=== PATIENT | female | born 1950 | race Caucasian/White ===

== ENCOUNTER 2022-12-05 20:53 | Emergency (ER) | payer MEDICARE, SELFPAY ==
--- NOTE | ~2022-12-05 | XR_ITS ---
XR chest 1V portable DATE: 12/05/2022 21:50 INDICATION: Shortness of breath. Weakness. TECHNIQUE: AP chest COMPARISON: None FINDINGS: There is cardiomegaly. Is aortic calcification and unfolding. No hilar or mediastinal enlargement is evident. There is elevation of the right diaphragm. There is infiltrate or atelectasis in the right lower lung . The lungs otherwise appear clear. No pleural effusion or pulmonary vascular congestion or pneumothorax. IMPRESSION: Elevated right diaphragm Right lower lung infiltrate and/atelectasis Cardiomegaly Aortic atherosclerosis Reviewed, dictated and finalized at location A.
--- NOTE | ~2022-12-05 | CT_ITS ---
EXAMINATION: CT brain wo con DATE: 12/05/2022 21:45 INDICATION: Weakness TECHNIQUE: Computed tomography (CT) of the head was performed without intravenous contrast. The mA wa s adjusted according to patient size. Iterative reconstruction technique was employed. Exam dose: 60 5.33 mGy-cm total exam DLP. COMPARISON: None FINDINGS: Cavum septum pellucidum and cavum vergae, anatomic variants. Chronic bilateral basal ganglia lacunar infarcts. There is nonspecific diminished attenuation of the cerebral white matter, likely due to chronic small vessel ischemic changes. Bilateral carotid siphon internal carotid artery and left vertebral and basilar artery calcifications. No intracranial mass lesion or hemorrhage no midline shift or mass effect. No subdural or epidural he matoma. No fracture or bone destruction of the cranial vault. Included paranasal sinuses and mastoid air cells are normally developed and aerated. IMPRESSION: Chronic bilateral basal ganglia lacunar infarcts Cerebral atherosclerosis and chronic small vessel ischemic changes of the cerebral white matter No acute intracranial finding Reviewed, dictated and finalized at Location A. Reviewed, dictated and finalized at location A. IMPRESSION: Chronic bilateral basal ganglia lacunar infarcts Cerebral atherosclerosis and chronic small vessel ischemic changes of the cereb ral white matter No acute intracranial finding
[2022-12-05 20:58] VITALS: BP 153/82; PULSE 95; RESP 16; TEMP 37.9; O2SAT 98
--- NOTE | 2022-12-05 21:21 | ECG_ITS ---
Measurements Intervals [place] Rate: 83 P: 33 NH: 160 QRS: -49 QRSD: 158 T: 136 QT: 387 QTc: 456 Interpretive Statements SINUS RHYTHM LEFT AXIS DEVIATION LEFT BUNDLE BRANCH BLOCK ABNORMAL ECG NO PREVIOUS ECG AVAILABLE FOR COMPARISON Electronically Signed On 12-06-2022 8:16:03 CDT by Joss Rowell D.O.
--- NOTE | 2022-12-05 21:46 | ED.GENADULT ---
HPI - General Adult General Chief complaint: Unspecified Stated complaint: weakness, sob, Time Seen by Provider: 12/05/22 21:12 History of Present Illness HPI narrative: Patient is a 72-year-old female who presents the emergency department with chief complaint of generalized weakness. Patient reports that this evening she was at a shinto activity around 5 PM and noticed that she started having some chills. Patient associated this initially with getting wet after she was outside in the rain but also reports that she is had a little bit of a cough and has felt short of breath for several days. Patient states that she has been a little bit confused and just not her normal self. Related Data Allergies Allergy/AdvReac Type Severity Reaction Status Date / Time No Known Allergies Allergy Verified 12/05/22 20:54 Review of Systems Review of Systems: A 10 system review of systems was completed on the patient and is negative except for what is stated in the HPI. Nursing and ancillary documentation was reviewed. Exam Narrative: GENERAL: Well-appearing, well-nourished, and in no acute distress. HEAD: Normocephalic, atraumatic. EYES: PERRLA and EOMI. ENT: Nares clear, no rhinorrhea or epistaxis. Mucous membranes moist. NECK: Supple. CHEST: Clear to auscultation. No respiratory distress. HEART: Regular rate and rhythm. No murmur heard. Normal peripheral pulses. ABDOMEN: Soft, nontender, nondistended, normal active bowel sounds. EXTREMITIES: Normal range of motion. No edema. SKIN: Warm, dry, no rash. NEURO: No focal deficits. Alert and oriented x3. PSYCH: Normal mood and affect. Course Vital Signs Vital signs: Vital Signs Temperature 37.9 C H 12/05/22 20:58 Pulse Rate 95 12/05/22 20:58 Respiratory Rate 16 12/05/22 20:58 Blood Pressure 153/82 H 12/05/22 20:58 Pulse Oximetry 98 12/05/22 20:58 Temperature 36.9 C 12/05/22 23:10 Pulse Rate 71 12/05/22 23:10 Respiratory Rate 18 12/05/22 23:10 Blood Pressure 122/66 12/05/22 23:05 Pulse Oximetry 99 12/05/22 23:10 Medical Decision Making MDM Narrative Medical decision making narrative: Differential diagnosis includes CVA, UTI, pneumonia, electrolyte abnormality, COVID Chest x-ray interpreted by the radiologist showed right lower lobe infiltrate CT head showed no acute findings Laboratory studies were obtained which showed a white count of 16.5 electrolytes showed no significant abnormalities the patient was negative for COVID and negative for influenza lactate was slightly elevated at 2.8. Procalcitonin was 0.1 BNP was 353 troponin 0.034 patient is feeling much better at this time is alert oriented and per the family at her baseline. [place] that the changes initially were secondary to her fever and infectious process. Patient was given Rocephin and Zithromax in the emergency department will be transitioned on cefdinir and Zithromax as an outpatient. Vital Signs Vital Signs: Vital Signs Temperature 37.9 C H 12/05/22 20:58 Pulse Rate 95 12/05/22 20:58 Respiratory Rate 16 12/05/22 20:58 Blood Pressure 153/82 H 12/05/22 20:58 Pulse Oximetry 98 12/05/22 20:58 Temperature 36.9 C 12/05/22 23:10 Pulse Rate 71 12/05/22 23:10 Respiratory Rate 18 12/05/22 23:10 Blood Pressure 122/66 12/05/22 23:05 Pulse Oximetry 99 12/05/22 23:10 Lab Data 12/05/22 21:56 12/05/22 21:58 Labs: Lab Results 12/05/22 12/05/22 12/05/22 Range/Units 21:56 21:56 21:56 WBC 16.5 H (4.5-10.0) K/mm3 RBC 4.19 L (4.2-5.4) M/mm3 Hgb 13.4 (12.0-15.0) g/dL Hct 38.3 (37.0-47.0) % MCV 91.4 (80-100) fl MCH 32.0 (26-34) pg MCHC 35.0 (32-36) g/dl RDW 12.6 (11.5-14.5) % Plt Count 219 (150-375) k/mm3 MPV 8.5 (7.4-10.4) fl Immature Gran % (Auto) Not Reportable Neut % (Auto) Not Reportable Lymph % (Auto) Not Reportable [place] % (Auto) Not
[2022-12-05 22:08] LABS: Hematocrit 38.3 % (37.0-47.0); Hemoglobin 13.4 g/dL (12.0-15.0); Mean Corpuscular Volume 91.4 fl (80-100); Mean Platelet Volume 8.5 fl (7.4-10.4); Platelet Count Result 219 k/mm3 (150-375); Red Blood Count 4.19 M/mm3 (4.2-5.4); Red Cell Distribution Width 12.6 % (11.5-14.5); White Blood Count 16.5 K/mm3 (4.5-10.0)
[2022-12-05] MEDS: SODIUM CHLORIDE 0.9% IV 1,000 ML 999 ML IV CONT (22:13)
[2022-12-05 22:19] LABS: Alanine Aminotransferase 26 U/L (6-35); Albumin Level 4.1 g/dL (3.5-5.1); Alkaline Phosphatase 76 U/L (38-126); Anion Gap 10 mmol/L (8-16); Aspartate Amino Transferase 40 U/L (14-36); Bilirubin,Total 0.6 mg/dL (0.2-1.3); Blood Urea Nitrogen 19 mg/dL (7-17); Calcium 8.8 mg/dL (8.4-10.2); Carbon Dioxide 22 mmol/L (22-30); Chloride 106 mmol/L (98-107); Estimated CRCL calculation 48 ml/min; Estimated Glomerular Filt Rate > 60; Glucose 119 mg/dL (65-110); Potassium 3.6 mmol/L (3.4-5.0); Sodium 138 mmol/L (137-145)
[2022-12-05 22:19] LABS: Magnesium 1.9 mg/dL (1.6-2.3)
[2022-12-05 22:20] LABS: Lactic Acid Reflex 2.8 mmol/L (0.7-2.0)
[2022-12-05 22:21] LABS: Prothrombin Time 13.2 Seconds (11.1-14.7)
[2022-12-05 22:22] LABS: Partial Thromboplastin Time 28.3 SECONDS (22.3-36.8)
[2022-12-05 22:24] LABS: Appearance Urine Clear (Clear); Bacteria Urine None Seen /hpf; Bilirubin Urine Negative (Negative); Blood Urine Negative (Negative); Color Urine Yellow (Yellow); Glucose Urine UA Negative (Negative); Ketones Urine Negative (Negative); Leukocyte Esterase Ur Trace LEU/UL (Negative); Nitrate Urine Negative (Negative); Non Pathogenic Casts 0-2; Protein Urine Negative (Negative); Specific Grav Ur 1.015 (1.001-1.035); Squamous Epithelial Cell Urine None seen /hpf (Few); Urobilinogen Urine 0.2 mg/dL (<2.0); WBC Urine 0-5 /hpf; pH Urine 6.5 (5.0-9.0)
[2022-12-05 22:28] LABS: NT Pro B Type Natriuretic Pept 353 pg/mL (19.9-100)
[2022-12-05 22:31] LABS: Troponin I 0.034 ng/mL (0.000-0.034)
[2022-12-05 22:45] LABS: Add Urine Microscopic? YES
[2022-12-05 22:48] LABS: Procalcitonin 0.1 ng/mL
[2022-12-05 22:53] LABS: Influenza A QL RT-PCR Negative (Negative); Influenza B QL RT-PCR Negative (Negative); SARS-CoV-2 RNA PCR Negative
[2022-12-05 22:57] LABS: Band Neutrophils Percent 12 % (0-6); Lymphocytes Absolute Manual 1.15 K/mm3 (1.1-4.5); Metamyelocytes Percent 3 %; Monocytes Absolute Manual 1.15 K/mm3 (0.1-0.90); Monocytes Percent Manual 7 % (3-9); Myelocytes Percent 1 %; Neutrophils Absolute Manual 13.53 K/mm3 (1.7-7.2); Neutrophils Percent Manual 70 % (46-73); Platelet Estimate Adequate (Adequate); Total Cells Counted 100
[2022-12-05 22:58] LABS: Crenated RBC 1+ (NORMAL); Macrocytosis 1+ (NORMAL); Schistocytes None Seen (NORMAL)
[2022-12-05 23:03] VITALS: BP 126/60; PULSE 77
[2022-12-05 23:04] VITALS: BP 129/64; PULSE 83
[2022-12-05 23:05] VITALS: BP 122/66; PULSE 85
[2022-12-05 23:10] VITALS: PULSE 71; RESP 18; TEMP 36.9; O2SAT 99
[2022-12-06 01:05] LABS: Reflex Lactic Acid Yes or No Add Lactic
[2022-12-06 01:09] VITALS: BP 105/69; PULSE 69; RESP 18; TEMP 36.6; O2SAT 99
== END 2022-12-06 01:09 | disposition home or self-care (01) ==
PROVIDERS: Emergency Provider Emergency Medicine; PCP Internal Medicine
DX: J18.9 Pneumonia, unspecified organism (principal); Z20.822 Contact with and (suspected) exposure to COVID-19; R06.02 Shortness of breath
CPT/HCPCS: 36415; 70450; 71045; 80053; 81001; 83605; 83735; 83880; 84145; 84484; 85025; 85610; 85730; 87040; 87636; 93005; 96365; 96366; 96367; 99284; J0131; J0456; J0696; J7030

== ENCOUNTER 2024-10-20 10:01 | Outpatient (CLI) | payer MEDICARE, SELFPAY ==
--- NOTE | ~2024-10-20 | CT_ITS ---
CT Scan of the Chest without Contrast: Clinical Indication: Lung cancer screening, nicotine dependence Technique: Contiguous sections were acquired throughout the chest without intravenous contrast. Dose reduction technique was used on this scan by utilizing automated exposure control and iterative recon struction technique. The dose-length product (DLP) was 54.09 mGy-cm. Findings: There is no evidence of any significant mediastinal, hilar or axillary lymphadenopathy. The mediastin al soft tissues appear normal. There is no evidence of pleural or pericardial effusion. There are streaky chronic interstitial changes predominantly at the lung bases and in the lingula and right middle lobe. No discrete pulmonary nodule clearly identified. Images through the upper abdomen reveal no abnormalities. There is advanced degenerative spondylosis of the mid thoracic spine. Impression: Lung RADS 1: Negative. 12 month follow-up screening CT advised. Chronic interstitial changes, as above. Reviewed, dictated and finalized at [facility]. HEMIST Impression: Lung RADS 1: Negative. 12 month follow-up screening CT advised. Chronic interstitial changes, as above.
--- OUTSIDE RECORDS SUMMARY | 2024-10-20 10:28 | XMS_ITS | Encounter Summary ---
Author Organization [facility] Address [address] [place] [address] Phone Care Team Providers Care Allergist/Md Name Role Phone Alesha Gregg MD Primary Care Provider [phone] Jamie Montgomery MD Unavailable Niharika Mena MD Unavailable [phone] Anu Gibbs MD Unavailable Pieter Clinton MD Unavailable [phone] Ariana Carcamo MD Unavailable Fay Burciaga PhD Unavailable Harjeet Crawford MD Unavailable Cate Mejia BUSINESS DEVELOPMENT RECRUITER Unavailable Ryan Kellogg BUSINESS DEVELOPMENT RECRUITER Unavailable Ja Dyer DNP Unavailable Gerald Harmon MD Primary Care Provider Haritha Yousif NP Unavailable Encounter Details Date Type Department Care Team (Late st Contact Info) Description 06/08/2019 Social Work [facility] Oncology [address] [address] Drea Melissa, INTEGRATED CIRCUITS INSPECTOR [address] [facility] [place] [address] Social History Tobacco Use Types Packs/Day Years Used Date Smoking Tobacco: Former Cigarettes 0.5 30 0 10/28/1988 - 10/28/2018 Smokeless Tobacco: Never Alcohol Use Standard Drinks/Week Comments Yes 0 (1 standard drink = 0.6 oz pur e alcohol) occasional Comments No Sex and Gender Information Value Date Recorded Sex Assigned at Not on file Legal Sex Female 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 Sex: female (home) Address: [address] [place] [address] PCP: Alesha BOWDEN was consulted to provide patient with a list of wig resources. SW provided resources, no additional information at this time. I will remain available to assist as needed. SUSANA Delaney documented in this encounter Plan of Treatment Not on file documented as of this encounter Visit Diagnoses Not on filedocumented in this encounter Care Teams Allergist/Md Relationship Specialty [place] [address] [facility] [address] [place] [address] PCP - General Gastroenterology 08/11/18 10/02/21 Gerald Harmon MD [address] [facility] [address] [place] [address] PCP - General Internal Medicine 10/03/21 [place] [address] [address] Consulting Physician Pulmonary Disease 12/08/18 3 [place] [address] [address] Consulting Physician Cardiology 12/08/18 04/30/23 [place] [address] [address] Medical Oncologist/Kitchen Aide Medical Oncology 12/08/18 09/03/20 [place] [address] [address] Consulting Physician Pulmonary Disease 12/23/18 3 [place] [address] [address] Radiation Oncologist Radiation Oncology 05/05/19 Fay Burci[place] PhD [address] [address] Nurse Practitioner Radiation Oncology 05/05/19 04/30/23 [place] [address] [address] Surgeon Surgical Oncology 05/05/19 04/30/23 Cate Mejia, BUSINESS DEVELOPMENT RECRUITER [address] [facility] [address] [place] [address] [facility] Outpatient Line Tender Flakeboard 08/15/19 08/25/19 Ryan Kellogg, BUSINESS DEVELOPMENT RECRUITER [address] [place] [address] [facility] Outpatient Line Tender Flakeboard 08/15/19 08/25/19 Ja Dyer DNP [address] [facility] [facility] [address] [place] [address] Nurse Practitioner Internal Medicine 08/15/19 08/25/19 Haritha Yousif, ERASTO [address] [place] [address] Nurse Practitioner Medical Oncology 05/01/23 documented as of this encounter
--- OUTSIDE RECORDS SUMMARY | 2024-10-20 10:28 | XMS_ITS | Encounter Summary ---
Author Organization [facility] Address [address] [place] [address] Phone Care Team Providers Care Fishing Rod Assembler Name Role Phone Alesha Gregg MD Primary Care Provider [phone] Jamie Montgomery MD Unavailable Niharika Mena MD Unavailable Anu Gibbs MD Unavailable Ryan Kellogg BAR PORTER Unavailable Cate Mejia BAR PORTER Unavailable Ja Dyer DNP Unavailable Pieter Clinton MD Unavailable Cate Mejia BAR PORTER Unavailable Ryan Kellogg BAR PORTER Unavailable Ariana Carcamo MD Unavailable Fay Burciaga PhD Unavailable Harjeet Crawford MD Unavailable Cate Mejia BAR PORTER Unavailable [phone] Ryan Kellogg BAR PORTER Unavailable Ja Dyer DNP Unavailable Gerald Harmon MD Primary Care Provider Yousif Haritha Thomas CEO NA Unavailable [phone] Encounter Details Date Type Department Care Team (Latest Contact Info) Description 08/30/2018 Orders Only [facility] Scanning, Provider Social History Tobacco Use Types Packs/Day Years Used Date Smoking Tobacco: Every Day Smokeless Tobacco: Never Alcohol Use Standard Drinks/Week Comments No 0 (1 standard drink = 0.6 oz pur e alcohol) Comments No Sex and Gender Information Value Date Recorded Sex Assigned at Not on file Legal Sex Female 8:12 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 Gender Identity Not on file Sexual Orientation Not on file documented as of this encounter Plan of Treatment Not on file documented as of this encounter Procedures Procedure Name Priority Date/Time Associated Diagnosis Comments SCAN - PATHOLOGY 08/30/2018 documented in this encounter Results * SCAN - PATHOLOGY (08/30/2018) us Provider Scanning Final Result documented in this encounter Visit Diagnoses Not on filedocumented in this encounter Care Teams Fishing Rod Assembler Relationship Specialty Start [place] [address] [address] PCP - General Gastroenterology 08/11/18 10/02/21 Gerald Harmon MD [address] [place] [address] PCP - General Internal Medicine 10/03/21 [place] [address] [facility] [address] [place] [address] Consulting Physician Pulmonary Disease 12/08/18 3 [place] [address] [address] [facility] [address] [place] [address] Consulting Physician Cardiology 12/08/18 04/30/[address] [place] [address] [facility] [address] [place] [address] Medical Oncologist/Dryland Farmer Medical Oncology 12/08/18 09/03/20 Ryan Kellogg, BAR PORTER [address] [facility] [address] [place] [address] [facility] Outpatient Mainframe Programmer Analyst 12/23/18 12/23/18 Cate Mejia, [facility] [address] [facility] [address] [place] [address] [facility] Outpatient Mainframe Programmer Analyst 12/23/18 12/23/18 [address] D[address]NP [address] [facility] [address] [place] [address] Nurse Practitioner Internal Medicine 12/23/18 02/20/[address] [place] [address] [facility] [address] [place] [address] Consulting Physician Pulmonary Disease 12/23/18 3 Cate Mejia, BAR PORTER [address] [facility] [address] [place] [address] [facility] Outpatient Mainframe Programmer Analyst 12/24/18 02/20/19 Ryan Kellogg, BAR PORTER [address] [facility] [address] [place] [address] [facility] Outpatient Mainframe Programmer Analyst 12/24/18 02/20/19 [place] [address] [facility] [address] [place] [address] Radiation Oncologist Radiation Oncology 05/05/19 Fay Burci[place], [place] [address] [facility] [address] [place] [address] Nurse Practitioner Radiation Oncology 05/05/19 04/30/23 [place] [address] [facility] [address] [place] [address] Surgeon Surgical Oncology 05/05/19 04/30/23 Cate Mejia, BAR PORTER [address] [facility] [address] [place] [address] [facility] Outpatient Mainframe Programmer Analyst 08/15/19 08/25/19 Ryan Kellogg, BAR PORTER [address] [facility] [address] [place] [address] [facility] Outpatient Mainframe Programmer Analyst 08/15/19 08/25/19 Ja Dyer DNP [address] [facility] [address] [place] [address] Nurse Practitioner Internal Medicine 08/15/19 08/25/19 Haritha Yousif NP [address] [place] [address] Nurse Practitioner Medical Oncology 05/01/23 documented as of this encounter
--- OUTSIDE RECORDS SUMMARY | 2024-10-20 10:28 | XMS_ITS | Continuity of Care Document ---
Author Organization [facility] Address [address] [place] [address] Phone Care Team Providers Care Clerk Funeral Detail Name Role Phone Vee OD, Clint Unavailable Unavailable Advance Directives Directive Yes / No Effective Date File Name No Information Encounters Encounter Description Practice Location Reason(s) For Visit Diagnoses Date Provider Providers Copied on Encounter [facility], [address], [place], [place], [id number], [place] tel:[phone] [facility] No Information Dec-0 7-200 2 Vee OD Clint. [address] , [address], [place], [address], [place]. tel:[phone] Family History Family Member Type Diagnosis Age At Onset No Information Payers Payer name Insurance type Covered green party ID Authoriza timartha(s) [employer] SOI CI [id number] Social History Type Description Quantity Date Captured Comments Sex Female Smoking Status No Information Chief Complaint And Reason For Visit No Information Reason For Referral Reason For Referral No Information History Of Present Illness Encounter Date Complaint History Of Prese nt Illness No Information Functional Status Date Functional Assessmen t No Information Instructions Date Instruction Additional Infor mation No Information Assessments Type Assessment Date No Information Patient Care Teams Name Effective Dates (start - stop) Status Members No Information
--- OUTSIDE RECORDS SUMMARY | 2024-10-20 10:28 | XMS_ITS ---
Author Organization [facility] Address [address] [place] [address] Care Team Providers Care Teaching Pastor Name Role Phone Gerald Harmon MD Primary Care Provider Haritha Yousif MANAGER PROGRAMS Unavailable Active Problems Problem Noted Date Diagnosed Date Major depressive disorder, r ecurrent episode, in full remission (CMS/HCC) 10/08/2021 ELIZABETH (generalized anxiety disorder) 10/10/2020 Encounter for follow-up surveillance of breast c ancer 03/14/2020 Pneumonitis, interstitial (CMS/HCC) 08/10/2019 Essential hypertension 08/10/2019 Generalized edema 08/10/2019 Other chronic pain 08/10/2019 Encounter for person encountering health service s 04/27/2019 Malignant neoplasm of female breast 04/12/2019 Overview (04/12/2019): Added automatically from request for surgery [id number] Pneumonia due to infectious organism 12/15/2018 Overview (12/15/2018): Added automatically from request for surgery [id number] Exam for clinical research 09/28/2018 Malignant 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, estrogen receptor positive 09/08/2018 Cancer Staging:Clinical:Stage IIB(cT2, cN1(f), cM0, G3, ER: Positive, MN: Positive, HER2: Negative) - Signed by Anu Gibbs MD on 09/08/2018 Pathologic stage from 04/12/2019:No Stage Recommended(ypT2, pN1, cM0, G2, ER+, MN+, HER2-) - Signed by Fay Burciaga, PhD on 05/05/2019 Pneumonitis Current Oncology Plans No current plan information found. Past Plans Oncology Chemotherapy Treatment Plan Name Start Date Discontinue Date Treatment Medications Discontinue Reason Plan Provider Cycles - [facility] - PD [id number] - Palbociclib - Neoadjuvant with optional Zoladex 11/12/2018 04/27/2019 [facility] palbociclib ([id number]; Ibrance) (2012-09-106/A 548-IIRS) Toxicity/Compl ication Anu Gibbs MD Treatment not started - [facility] Breast - [id number] - Arm 1 - Anastrozole - NeoAdjuvant 9 11/05/2018 No medications scheduled. Patient Preference Anu Gibbs MD Treatment not started Oncology Supportive Care Plan Name Start Date Discontinue Date Treatment Medications Discontinue Reason Plan Provider ALTEPLASE (CATHFLOW ACTIVASE) - ORDERS FOR OCCLUDED CATHETERS 04/27/2019 11/24/2023 No medications scheduled. Automatic discontinuation of dormant plans Anu Gibbs MD Oncology Treatment (2) Plan Name Start Date Discontinue Date Treatment Medications Discontinue Reason Plan Provider Cycles TC: (DOCEtaxe l / Cyclophos phamide) 21 Day Cycles - Breast 9 11/15/2020 cycloPHOSphamide (CYTOXAN)cycloPHOSp hamide (CYTOXAN) IVPB (vial 20 mg/mL) ([id number])DOCEtaxel (TAXOTERE)DOCEtaxel (TAXOTERE) IVPB in 250 mL (vial 10mg/mL) Therapy Complete Anu Gibbs MD 6 of 6 cycles started Specialty Infusion Treatment Plan Name Start Date Discontinue Date Treatment Medications Discontinue Reason Plan Provider IV MAINTENANCE THERAPY PLAN 04/27/2019 07/22/2023 No medications scheduled. Automatic discontinuation of dormant plans Anu Gibbs MD Radiation Treatments * Plan Last Treated On Elapsed Days Fractions Treated Prescribed Fraction Dose Prescribed Total Dose RT BRS BOOST 11/17/2019 45 5 200 cGy 1,000 c Gy RT CW_LNs 11/10/2019 38 28 180 cGy 5,040 cGy Reference Point Last Treated On Elapsed Days Session Dose Total Dose PTV_BOOST 11/17/2019 45 200 cGy 1,000 cGy R BREAST_LNs 11/10/2019 38 180 cGy 5,040 cGy Lifetime Dose Tracking * Chemical Lifetime Dose Automatic Entry Manual Entr y Fluoro Time 0.58 minutes 0.58 minutes 0 minutes cyclophosphamide 2,987.028 mg/m2 (5,490 mg) 2,987.028 mg/m2 (5,490 mg) 0 mg/m2 (0 mg) Air kerma at the reference point (Ka,r) 13.47 mGy 13.47 mGy 0 mGy
--- OUTSIDE RECORDS SUMMARY | 2024-10-20 10:28 | XMS_ITS | Encounter Summary ---
Author Organization [facility] Address [address] [place] [address] Phone Care Team Providers Care Agricultural Extension Officer Name Role Phone Alesha Gregg MD Primary Care Provider [phone] Jamie Montgomery MD Unavailable Niharika Mena MD Unavailable [phone] Anu Gibbs MD Unavailable Pieter Clinton MD Unavailable Ariana Carcamo MD Unavailable Fay Burciaga PhD Unavailable Harjeet Crawford MD Unavailable Cate Mejia ASSISTANT DEPARTMENT MANAGER Unavailable Ryan Kellogg ASSISTANT DEPARTMENT MANAGER Unavailable [phone] Ja Dyer DNP Unavailable Gerald Harmon MD Primary Care Provider Haritha Yousif MANAGER RESEARCH Unavailable Encounter Details Date Type Department Care Team (Latest Contact Info) Description 04/21/2019 Orders Only [facility] Scanning, Provider [...] on file Legal Sex Female 8:12 AM SHADOWGRAPH OPERATOR Gender Identity Not on file Sexual Orientation Not on file documented as of this encounter Plan of Treatment Not on file documented as of this encounter Procedures Procedure Name Priority Date/Time Associated Diagnosis Comments SCAN - LABS 04/21/2019 documented in this encounter Results * SCAN - LABS (04/21/2019) us Provider Scanning Final Result documented in this encounter Visit Diagnoses Not on filedocumented in this encounter Care Teams Agricultural Extension Officer Relationship Specialty Start [place] [address] [address] PCP - General Gastroenterology 08/11/18 10/02/21 Gerald Harmon MD [address] [facility] [address] [place] [address] PCP - General Internal Medicine 10/03/21 [place] [address] [address] Consulting Physician Pulmonary Disease 12/08/18 3 [place] [address] [address] Consulting Physician Cardiology 12/08/18 04/30/23 [place] [address] [address] Medical Oncologist/Newspaper Delivery Driver Medical Oncology 12/08/18 09/03/20 [place] [address] [address] Consulting Physician Pulmonary Disease 12/23/18 3 [place] [address] [address] Radiation Oncologist Radiation Oncology 05/05/19 [place] [address] [address] Nurse Practitioner Radiation Oncology 05/05/19 04/30/23 [place] [address] [address] Surgeon Surgical Oncology 05/05/19 04/30/23 Cate Mejia, ASSISTANT DEPARTMENT MANAGER [address] [facility] [address] [place] [address] [facility] Outpatient Chemistry Technician 08/15/19 08/25/19 Ryan Kellogg, ASSISTANT DEPARTMENT MANAGER [address] [facility] [address] [place] [address] [facility] Outpatient Chemistry Technician 08/15/19 08/25/19 [address] D[address] DNP [address] [facility] [address] [place] [address] Nurse Practitioner Internal Medicine 08/15/19 08/25/19 Haritha Yousif NP [address] [place] [address] Nurse Practitioner Medical Oncology 05/01/23 documented as of this encounter
--- OUTSIDE RECORDS SUMMARY | 2024-10-20 10:28 | XMS_ITS | Referral Summary ---
Author Organization [facility] Address [address] [place] [address] Care Team Providers Care Insurance Writer Name Role Phone Gerald Harmon MD Primary Care Provider Haritha Yousif FRET SAW OPERATOR Unavailable [phone] Encounters Date Type Department Care Team Description 09/02/2024 Telephone [facility] Oncology [facility] [place] [address] Haritha Yousif NP from Last 3 Months Allergies No known active allergies Medications biotin 10,000 mcg capsuleIndication s:hair skin and nails Take 1 capsule (10,000 mcg total) by mouth daily Active naproxen (NAPROSYN) 250 mg tabletIndications :Anti-inflammator y,Pain Take 2 tablets (500 mg total) by mouth every 12 (twelve) hours as needed for pain Active lisinopril (PRINIVIL,ZESTRIL ) 20 mg tablet Take 1 tablet (20 mg total) by mouth daily Active vitamin B complex (B COMPLEX-VITAMIN B12 ORAL) Take 1 tablet by mouth daily Active oxybutynin XL (DITROPAN-XL) 10 mg 24 hr tablet 3 Active mv,Ca,min-iron fnbh-FA-eljlwb 1 mg iron-66.7 mcg-1,000 mcg tablet Take by mouth Active magnesium chloride 64 mg of elemental magnesium delayed release tabletIndications :hypomagnesemia Take 1 tablet (64 mg of elemental magnesium total) by mouth Active calcium carbonate-vitamin D3 1,500 mg (600 mg elemental)-500 unit capsule Take by mouth Act janine venlafaxine XR (EFFEXOR-XR) 75 mg 24 hr capsule TAKE 1 CAPSULE(75 MG) BY MOUTH DAILY 30 capsule 2 4 Active venlafaxine XR (Effexor XR) 37.5 mg 24 hr capsule Take 1 capsule (37.5 mg total) by mouth daily In addition to 75 mg for a total of 112.5 mg 30 capsule 2 4 02/09/20 25 Active tamoxifen (NOLVADEX) 20 mg tabletIndications :Encounter for person encountering health services,Malignan t neoplasm of upper-outer quadrant of right breast in female, estrogen receptor positive (HCC) Take 1 tablet (20 mg total) by mouth daily 90 tablet 3 4 Active Active Problems Problem Noted Date Diagnosed Date [...] (04/12/2019): Added automatically from request for surgery [id number] Pneumonia due to infectious organism 12/15/2018 Overview (12/15/2018): Added automatically from request for surgery [id number] Exam for clinical research 09/28/2018 Malignant 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, estrogen receptor positive 09/08/2018 Cancer Staging:Clinical:Stage IIB(cT2, cN1(f), cM0, G3, ER: Positive, MO: Positive, HER2: Negative) - Signed by Anu Gibbs MD on 09/08/2018 Pathologic stage from 04/12/2019:No Stage Recommended(ypT2, pN1, cM0, G2, ER+, MO+, HER2-) - Signed by Fay Burciaga, PhD on 05/05/2019 Pneumonitis Immunizations Name Administration Dates Next Due Influenza, Quadrivalent, Hig h Dose, Preservative Free, Intrr 06/18/2020 Influenza, Trivalent, High D ose, Split, Preservative Free, Intramuscular 07/11/2019 Influenza, Unspecified 07/11/2019 Moderna SARS-CoV-2 Monovalent Vaccination (12+ Y RS) 12/13/2020,11/14/2020 Social History Tobacco Use Types Packs/Day Years Used Date Smoking Tobacco: Every Day Cigarettes 0.5 30 Started: 10/28/1988; Last attempted to quit: 10/28/2018 Smokeless Tobacco: Never Tobacco Cessation:Ready to Q uit: Not Asked; Counseling Given: Not Answered Alcohol Use Standard Drinks/Week Comments Yes 0 (1 standard drink = 0.6 oz pur e alcohol) occasional Social Connection and Isolat ion Panel [NHANES] Answer Date Recorded Frequency of Communication w ith Friends and Family Three times a week 08/12/2019 Frequency of Social Gatherin gs with Friends and Family More than three times a week 08/12/2019 Attends [employer] Services 1 to 4 times per year 08/12/2019 Active Member of Clubs or Organizations No 08/12/2019 Attends Club or Organization Meetings Never 08/12/2019 Marital Status 08/12/2019 AUDIT-C Answer Date Recorded Frequency of Alcohol Consumption Not on file 12/15/2022 Q2: How many drinks containi ng alcohol do you have on a typical day when you are drinking? Patient does not drink Frequency of Binge Drinking Not on file 11/2022 Overall Financial Resource Strain (CARDIA) Answe r Date Recorded Difficulty of Paying Living Expenses Not hard at all 08/12/2019 Hunger Vital Sign Answer Date Recorded Worried About Running Out of Food in the Last Ye ar Never true 08/12/2019 Ran Out of Food in the Last Year Never true 08/12/2019 PRAPARE - Transportation Answer Date Re corded Lack of Transportation (Medical) No 08/12/2019 Lack of Transportation (Non-Medical) No 08/12/2019 Comments No Sex and Gender Information Value Date Recorded Sex Assigned at Not on file 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 Gender Identity Not on file Sexual Orientation Not on file Last Filed Vital Signs Vital Sign Reading Time Taken Comments Blood Pressure 127/85 04/29/2024 10:15 AM CDT Pulse 73 04/29/2024 10:15 AM CDT Temperature 36.5 C (97.7 F) 04/29/2024 10:15 AM CDT Respiratory Rate 20 04/29/2024 10:15 AM CDT Oxygen Saturation 97% 04/29/2024 10:15 AM CDT Inhaled Oxygen Concentration - - Weight 62.8 kg (138 lb 6.4 oz) 04/29/2024 10:15 AM CDT Height 162.6 cm (5' 4 ) 05/01/2023 10:22 AM CDT Body Mass Index 23.76 05/01/2023 10:22 AM CDT Plan of Treatment Not on file Medical Devices Explanted Type Area Office Services Representative Device Identifier Shelf Expiration Date Model / Serial / Lot [employer] [id number] Powerport Mri Airguard 8fr 1 Lumen Attachable Catheter Latex Free - [id number] Implanted:Qty: 1 on 04/20/2019 by Christ Conrad MD at [facility] Explanted:Qty: 1 on 12/06/2020 by Kaushal Garzon MD at [facility] N/A: Chest [employer] 11/11/2020 [id number] / / [id number] Procedures Procedure Name Priority Date/Time Associated Diagnosis Comments SCREENING MAMMOGRAM BILATERAL W KOBE Schedule Routine, Read Routine (OP Routine) 04/29/2024 9:39 AM CDT Screening mammogram for breast cancer from Last 3 Months or Most Recently Relevant to Health Maintenance Results * Screening Mammogram Bilateral W Kobe (04/29/2024 9:39 AM CDT) Anatomical Region Laterality Modality Breast Bilateral Mammography 04/29/2024 12:4 3 PM CDT Impressions 04/29/2024 12:43 PM CDT No evidence of malignancy in either breast. FINAL ASSESSMENT: BI-RADS Category 2: Benign. RECOMMENDATION: Recommend return for annual screening mammogram in 12 months. Electronically signed by: PEPE FERRIS MD Narrative 04/29/2024 12:43 PM CDT EXAMINATION: BILATERAL SCREENING MAMMOGRAM COMPARISON: All prior mammograms dating back to 2018. TECHNIQUE: Full-field 2D and digital breast tomosynthesis (DBT) images were obtained. CAD was utilized. BREAST PARENCHYMAL COMPOSITION: There are scattered areas of fibroglandular density. FINDINGS: There is no suspicious mass, calcification, or distortion in either breast. Stable changes relating to right breast conservation therapy are again noted. Haritha Yousif FRET SAW OPERATOR IMG MAMMO PROCEDURES Final Result from Last 3 Months or Most Recently Relevant to Health Maintenance Insurance MEDICARE SOLUTIONS [facility] MEDICARE [id number] MEDICARE [facility] REF MEDICARE SOLUTIONS MEDICARE SOLUTIONS Member Subscriber Plan / Payer (Ef fective 2022-Present) Name:Cathi Whittaker Aspen Relation to Subscriber:Self Name:Adolph Whittakerrigo Louise Payer ID:[id number] (NAIC) Type:[employer] MEDICARE Address: [place] [id number] MEDICARE SOLUTIONS Member Subscriber Plan / Payer (Ef fective 2022-Present) Name:Adolph Whittakerrigo Louise Relation to Subscriber:Self Name:Cathi Whittaker Aspen Payer ID:[id number] (NAIC) Type:[facility] MEDICARE Address: [place] [id number] Advance Directives For more information, please contact: [phone] * Full Code (Latest Code Status on File) Date Activated Date Inactivated Comments 08/10/2019 2:58 PM 08/12/2019 5:31 PM * Full Code Date Activated Date Inactivated Comments 03/25/2019 2:32 PM 03/26/2019 8:36 PM * Full Code Date Activated Date Inactivated Comments 12/15/2018 2:08 PM 12/23/2018 9:09 PM * Full Code Date Activated Date Inactivated Comments 12/04/2018 6:48 PM 12/08/2018 8:38 PM Healthcare Agents on File Name Relationship Healthcare Agent [facility] p Communication Emmy Franco Daughter Health Care Agent Juanita Wilson Daughter Health Care Agent Care Teams Insurance Writer Relationship Specialty Start Date End Date Gerald Harmon MD PCP - General Internal Medicine 10/03/21 Haritha Yousif NP [address] [place] [address] Nurse Practitioner Medical Oncology 05/01/23
--- OUTSIDE RECORDS SUMMARY | 2024-10-20 10:28 | XMS_ITS | CONTINUITY OF CARE DOCUMENT ---
Author Name huan pressley Address Unknown Organization [facility] Address [address] [place] [address] Phone [phone] Care Team Providers Care Software Support Specialist Name Role Phone Moe GRAY, Roseanne Unavailable Gerald Harmon MD Unavailable Gerald Harmon MD Unavailable PROBLEMS Condition Status Date Provider Notes Depression active Roseanne Rosa MD HTN essential active Roseanne Rosa MD Breast cancer active Roseanne Rosa MD Cardiomyopathy, echo ef 60%, mild MR, TR, 11/2021 active Ap Ahmedzai Pneumonia completed - Roseanne Rosa MD Family History of CVA or Stroke: active ? Roseanne Rosa MD Tobacco use, quit active Roseanne Rosa MD Smoker completed - Roseanne Rosa MD ENCOUNTERS Date Type Provider Location Encounter Diagnosis - In-person encounter Office Visit Roseanne Rosa MD [place] [facility] Cardiomyopathy, echo ef 60%, mild MR, TR, mokerTobac co use, quit - In-person encounter Office Visit Roseanne Rosa MD [place] [facility] - In-person encounter Office Visit Roseanne Rosa MD [facility] Cardiomyopathy, echo ef 60%, mild MR, TR, neumonia - In-person encounter Office Visit Roseanne Rosa MD [facility] - In-person encounter Office Visit Roseanne Rosa MD [facility] Family History of CVA or Stroke: VITAL SIGNS Date Observation Value Provider Body Mass Index (Ratio) 25.40 kg/m2 Graeme Rosa MD blood pressure, diastolic 87 mm[facility]Hg[facility]Hg[facility] blood pressure, diastolic 87 mm[Hg] Li [facility] blood pressure, systolic 141 mm[Hg] [facility] blood pressure, diastolic 87 mm[Hg] Sa ra Live blood pressure, systolic 141 mm[Hg] Maday a Live oxygen saturation, oximetry 98 % Kristi Live respiratory rate E&M 16 /min Kristi Si ms pulse rate 77 /min Kristi Live blood pressure, cuff size regular Sa ra Live weight E&M 148 [lb_av] Kristi Live height E&M 64 [in_i] Kristi Live Body Mass Index (Ratio) 26.77 kg/m2 Graeme Rosa MD blood pressure, cuff size regular Ke rri Gruenenfelder blood pressure, diastolic 86 mm[Hg] Ke rri Gruenenfelder blood pressure, systolic 132 mm[Hg] Ronald ri Juan Pablo oxygen saturation, oximetry 97 % Nicol Juan Pablo respiratory rate E&M 18 /min Nicol Misbah elliott pulse rate 77 /min Nicol Wilfrid er weight E&M 156 [lb_av] Nicol Grtenanenfe lder height E&M 64 [in_i] Nicol Grtenanenfwill lder Body Mass Index (Ratio) 28.83 kg/m2 Graeme Rosa MD blood pressure, cuff size regular Jovany Christiansonby blood pressure, diastolic 70 mm[Hg] Jovany isty Jesus blood pressure, systolic 110 mm[Hg] Kri stenrique Jesus pulse rate 63 /min Alice Jesus oxygen saturation, oximetry 96 % Alice Jesus respiratory rate E&M 17 /min Alice Jesus weight E&M 168 [lb_av] Alice [place] height E&M 64 [in_i] Alice Jesus Body Mass Index (Ratio) 28.15 kg/m2 Graeme Rosa MD blood pressure, diastolic 70 mm[Hg] Jovany Christiansonby blood pressure, systolic 108 mm[Hg] Jovanyi kat [place] blood pressure, cuff size regular Jovany fontanez Jesus oxygen saturation, oximetry 95 % Alice [place] pulse rate 87 /min Alice Jesus respiratory rate E&M 17 /min Alice Jesus weight E&M 164 [lb_av] Alice [place] height E&M 64 [in_i] Alice Jesus Body Mass Index (Ratio) 26.09 kg/m2 Graeme Rosa MD respiratory rate E&M 19 /min Alice Jesus blood pressure, diastolic 90 mm[Hg] Jovany fontanez [place] blood pressure, systolic 110 mm[Hg] Jovanyi stenrique [place] height E&M 64 [in_i] Alice [place] weight E&M 152 [lb_av] Alice [place] blood pressure, resting Yes [facility] [place] ALLERGIES No Known Drug Allergies HISTORY OF MEDICATION USE Medication Status Instructions Dates Provider Indications Com ments buspirone 5 mg tablet active Kristi Live venlafaxine 75 mg tablet active once a day Nicol Almeida tamoxifen 10 mg tablet active Take 1 once a day Nicol Almeida lisinopril 20 mg tablet active Take 1 tablet by mouth once a day Alice Lee #90, 90 days supply, Filled 02/12/2019 furosemide 40 mg tablet active Take 1 tablet by mouth once a day Alice Lee #90, 90 days supply, Filled 02/12/2019 OXYCODONE HCL 5 MG ORAL TABLET completed take one tablet by mouth every 4-6 hours as needed for pain - Nicol Almeida #25, 4 days supply, Filled 03/26/2019 METOPROLOL SUCCINATE ER 25 MG ORAL TABLET EXTENDED RELEASE 24 HOUR completed take one tablet by mouth twice daily - Alice Lee LISINOPRIL-HYD ROCHLOROTHIAZI DE 10-12.5 MG ORAL TABLET completed take one tablet by mouth once daily - Alice Lee EQL IBUPROFEN PM TABLET completed take one 600 mg tablet by mouth every 8 hours as needed for pain - Nicol Almeida FAMOTIDINE 20 MG ORAL TABLET completed take one tablet by mouth once daily - Nicol Almeida biotin 10 mg tablet active Take 1 tablet by mouth once a day Alice Lee B-6 TABLET active Take 1 tablet by mouth once a day Alice Lee ANASTROZOLE 1 MG ORAL TABLET completed take one tablet by mouth once daily - Nicol Almeida SOCIAL HISTORY Date Observation Value Provider social history reviewed E&M revi ewed - no changes required Ap Barnhart social history E&M S moking History: P atient currently smokes every day. P atient has been counseled to quit. Alvin Lobato smoking/tobacco cess ation, patient education and counseling yes Alvin Lobato social history reviewed E&M revi ewed - no changes required Alvin Lobato number of years as a smoker 33 a Nicol Almeida smoking history, tot al pack/day 1 - 3 a day Nicol Sandovaler cigarette use yes Nicol Pollard elder smoking status Current every day smoker K germán Taylorvickytomas social history E&M S moking History: U nknown if patient has ever smoked. Roseanne Rosa MD social history reviewed E&M revi ewed - no changes required Roseanne Rosa MD smoking status Unknown if ever smoked Stef maderaenrique Lee social history E&M S moking History: U nknown if patient has ever smoked. Roseanne Rosa MD smoking status Unknown if ever smoked Antonino Rosa MD social history reviewed E&M revi ewed - no changes required Roseanne Rosa MD smoking history, tot al pack/day 4-6 cig Alice Christiansonby number of years as a smoker 30 a Alice Jesus smoking, year quit 2019 Aliceestee Chatman sby cigarette use yes Alice Jesus smoking status Former smoker Alice Christiansonby number of grandchildren Roseanne Rosa MD T castillo Rosa MD social history reviewed E&M revi ewed - no changes required Roseanne Rosa MD FAMILY HISTORY Family Member Condition Mother Family History of Co ngestive Heart Failure: Mother Family History of CV A or Stroke: INSURANCE PROVIDERS Payer name Policy type / Coverage type [place] red republican ID [facility] MEDICARE COMPLETE HMO Other [id number] ADVANCE DIRECTIVES Name Date DISCUSSED - NO DECISION MADE TREATMENT PLAN Date Name Performer [id number],SRoseanne MD [id number],SRoseanne MD Cardiology Roseanne Rosa MD Cardiology Roseanne Rosa MD Cardiology Follow up Alvin Nacht Cardiology Follow up Alvin Nacht Cardiology Follow up Alvin Nacht Cardiology Follow up Alvin Nacht Cardiology Roseanne Rosa MD Cardiology Roseanne Rosa MD Cardiology Roseanne Rosa MD Cardiology Roseanne Rosa MD Cardiology Roseanne Rosa MD Cardiology Roseanne Rosa MD Cardiology Roseanne Rosa MD Cardiology Roseanne Rosa MD Cardiology Roseanne Rosa MD Cardiology Roseanne Rosa MD Cardiology Roseanne Rosa MD Cardiology Roseanne Rosa MD Date Name Complete Echo Complete Echo Complete Echo HISTORY OF PROCEDURES Procedure Date Procedure Name Provider Procedure Notes S tatus EKG Roseanne Rosa MD completed EKG Roseanne Rosa MD completed EKG Roseanne Rosa MD completed
--- OUTSIDE RECORDS SUMMARY | 2024-10-20 10:28 | XMS_ITS | Clinical Summary ---
Author Organization [facility] Address [facility] [place] [address] Care Team Providers Care Teenage Program Director Name Role Phone Unavailable Primary Care Provider Unavailabl e Social History Tobacco Use Types Packs/Day Years Used Date Smoking Tobacco: Never Assessed Comments Unknown Sex and Gender Information Value Date Recorded Sex Assigned at Not on file Legal Sex Female 7:46 PM CDT Gender Identity Not on file Sexual Orientation Not on file Plan of Treatment Health Maintenance Due Date Last Done Comments Colorectal Cancer Screening Colonoscopy (10 Years) 1950 Hepatitis C 1968 DTaP, Tdap and Td Vaccines ( 1 - Tdap) 1969 Mammogram Screening 1990 Zoster Vaccines (1 of 2) 2000 Dexa Scan (General) 2015 Pneumococcal Vaccine: 65+ Ye ars (1 of 1 - PCV) 2015 COVID-19 Vaccine (2023-2 5 season) 2024 Influenza Adult (#1) 2024 RSV Immunization or 60+ Years (1 - 1-dose 75+ series) 2025 Meningococcal B Vaccine Aged Out No l onger eligible based on patient's age to complete this topic Meningococcal Vaccine Aged Out No jenniffer stevan eligible based on patient's age to complete this topic RSV Immunizations Under 20 Months Aged Out No longer eligible based on patient's age to complete this topic
--- OUTSIDE RECORDS SUMMARY | 2024-10-20 10:28 | XMS_ITS | Clinical Summary ---
Author Organization [facility] Address [address] [place] [address] Care Team Providers Care Inside Phone Sales Name Role Phone Gerald Harmon MD Primary Care Provider Haritha Yousif LITHOGRAPHIC PLATEMAKER Unavailable [phone] Allergies No known active allergies Medications biotin [...] mg 24 hr tablet 3 Active mv,Ca,min-iron tqfo-DC-gvsmcr 1 mg iron-66.7 mcg-1,000 mcg tablet Take [...] (04/12/2019): Added automatically from request for surgery [id number] Pneumonia due to infectious organism 12/15/2018 Overview (12/15/2018): Added automatically from request for surgery [id number] Exam for clinical research 09/28/2018 Malignant 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, estrogen receptor positive 09/08/2018 Cancer Staging:Clinical:Stage IIB(cT2, cN1(f), cM0, G3, ER: Positive, OR: Positive, HER2: Negative) - Signed by Anu Gibbs MD on 09/08/2018 Pathologic stage from 04/12/2019:No Stage Recommended(ypT2, pN1, cM0, G2, ER+, OR+, HER2-) - Signed by Fay Burciaga, PhD on 05/05/2019 Pneumonitis Encounters Date Type Department Care Team Description 09/02/2024 Telephone [facility] Oncology [facility] [place] [address] Yousif, Haritha William, LITHOGRAPHIC PLATEMAKER from Last 3 Months Immunizations Name Administration Dates Next Due Influenza, Quadrivalent, Hig h Dose, Preservative Free, Intrr 06/18/2020 Influenza, Trivalent, High D ose, Split, Preservative Free, Intramuscular 07/11/2019 Influenza, Unspecified 07/11/2019 Moderna SARS-CoV-2 Monovalent Vaccination (12+ Y RS) 12/13/2020,11/14/2020 Surgical History Surgery Date Site/Laterality Comments TUBAL LIGATION BREAST BIOPSY 08/30/2018 Right TUBAL LIGATION BREAST BIOPSY 09/28/2018 Right BREAST BIOPSY 10/28/2018 Right BREAST BIOPSY 11/26/2018 Right COLONOSCOPY MASTECTOMY PARTIAL / LUMPECTOMY 03/25/2019 Right [id number] disease Medical History Medical History Date Comments Anxiety Hypertension Breast cancer (HCC) CHF (congestive heart failure) (CMS/HCC) (HCC) Family History Medical History Relation Name Comments Pancreatic cancer Father pancreatic cancer Liver cancer Father's Brother Pancreatic cancer Father's Sister Kidney disease Mother kidney failure Lung cancer Sister lung cancer Anesthesia problems Neg Hx Breast cancer Neg Hx Ovarian cancer Neg Hx Thyroid cancer Neg Hx Relation Name Status Comments Father pancreatic cancer Father's Brother Father's Sister Mother kidney failure Sister lung cancer Social History Tobacco Use Types Packs/Day Years [...] than three times a week 08/12/2019 Attends [employer] Services 1 to 4 times per year [...] on file 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 Menses from age 12 to age 50. History of control pills for 10 years and hormone replacement therapy for 1 year. Last Filed Vital Signs Vital Sign Reading [...] 05/01/2023 10:22 AM CDT Plan of Treatment Health Maintenance Due Date Last Done Comments Colon Cancer Screening-Colonoscopy 1950 Depression Screening 1950 Hepatitis C Screening 1950 Osteoporosis Screening-Bone Density Scan 1950 DTaP/Tdap/Td Vaccine (1 - Tdap) 1961 Hepatitis B Screening 1968 Zoster Vaccine (1 of 2) 1969 Fall Risk Assessment 12/06/2021 12/06/2020 Well Visit 65+ 12/16/2023 12/15/2022 Covid-19 Vaccine ( - 2023-2 5 season) 2024 07/20/2023, 09/22/2021, 12/13/2020, Additional history exists Influenza Vaccine (#1) 2024 , 07/04/2022, 08/05/2021, Additional history exists Breast Cancer Screening-Mammogram 04/29/2025 04/29/2024, 04/22/2023, 04/14/2022, Additional history exists Pneumococcal vaccine 65+ Completed 03/13/2023, 10/15 Medical Devices Explanted Type Area Instructor Creeler Device Identifier Shelf Expiration Date Model / Serial / Lot [employer] [id number] Powerport Mri Airguard 8fr 1 Lumen Attachable Catheter Latex Free - [id number] Implanted:Qty: 1 on 04/20/2019 by Christ Conrad MD at [facility] Explanted:Qty: 1 on 12/06/2020 by Kaushal Garzon MD at [facility] N/A: Chest [employer] 11/11/2020 [id number] / / [id number] Procedures Procedure Name Priority Date/Time Associated Diagnosis [...] conservation therapy are again noted. Haritha Yousif NP IMG MAMMO PROCEDURES Final Result from Last 3 Months or Most Recently Relevant to Health Maintenance Insurance MEDICARE SOLUTIONS [facility] MEDICARE [id number] MEDICARE [employer] MEDICARE [facility] Address: [address] [address] [place] [address] [facility]F MEDICARE SOLUTIONS MEDICARE SOLUTIONS MEDICARE SOLUTIONS Advance Directives For more information, please contact: [phone] * Full Code (Latest Code Status on [...] Agents on File Name Relationship Healthcare Agent Relationshi p Communication Emmy Franco Daughter Health Care Agent Juanitacayla Wilson Daughter Health Care Agent Care Teams Inside Phone Sales Relationship Specialty Start Date End Date Gerald Harmon MD PCP - General Internal Medicine 10/03/21 Haritha Yousif NP [address] [place] [address] Nurse Practitioner Medical Oncology 05/01/23
== END 2024-10-20 10:02 | disposition home or self-care (01) ==
LOC: ANHIMG 10:03
PROVIDERS: PCP Internal Medicine; Visit Provider Internal Medicine
DX: F17.210 Nicotine dependence, cigarettes, uncomplicated (principal)
CPT/HCPCS: 71271